=== PATIENT | female | born 2000 ===

== ENCOUNTER 2018-10-06 19:43 | Emergency (ER) | payer SELFPAY ==
[2018-10-06 20:06] VITALS: RESP 18; TEMP 99.3
--- NOTE | 2018-10-06 20:59 | ED PDOC ---
HPI: Abdomen Time Seen by Provider: 10/06/18 20:34 Chief Complaint (Nursing): GI Problem Chief Complaint (Provider): rectal bleed History Per: Patient History/Exam Limitations: no limitations Onset/Duration Of Symptoms: Days (2), Intermittent Episodes Associated Symptoms: denies: Fever, Chills, Nausea, Vomiting Exacerbating Factors: None Alleviating Factors: None Additional Complaint(s): Episode of blood with bowel movement last night. Then had normal bowel movement this morning. Just prior to arrival she was voiding and felt "tightness" in her rectum and when she wiped, she had blood on tissue, then drops in toilet. Denies nosebleed, dental bleed, vaginal bleed or bruising. Denies abdominal pain or lightheadedness. Intermittently has constipation, but currently not constipated No rectal pain or itching. Past Medical History Reviewed: Historical Data, Nursing Documentation, Vital Signs Vital Signs: Last Vital Signs Temp 99.3 F 10/06/18 20:04 Pulse 78 10/06/18 20:04 Resp 18 10/06/18 20:04 BP 132/79 10/06/18 20:04 Pulse Ox 99 10/06/18 20:04 - Medical History PMH: Asthma Denies: Chronic Kidney Disease - Surgical History Surgical History: No Surg Hx - Family History Family History: States: No Known Family Hx - Social History Current smoker - smoking cessation education provided: No - Immunization History Hx Tetanus Toxoid Vaccination: No Hx Influenza Vaccination: No Hx Pneumococcal Vaccination: No - Home Medications Home Medications: Ambulatory Orders Medication Instructions Recorded Hard Fat/Phenylephrine [place] 1 sup RC Q4 PRN #30 sup 10/06/18 [Anusol Suppository] - Allergies Allergies/Adverse Reactions: Allergies Allergy/AdvReac Type Severity Reaction Status Date / Time No Known Allergies Allergy Verified 10/06/18 20:04 Review of Systems ROS Statement: Except As Marked, All Systems Reviewed And Found Negative Gastrointestinal: Positive for: Hematochezia. Negative for: Nausea, Vomiting, Abdominal Pain, Melena, Rectal Pain Physical Exam - Reviewed Nursing Documentation Reviewed: Yes Vital Signs Reviewed: Yes - Physical Exam Appears: Positive for: Non-toxic, No Acute Distress Head Exam: Positive for: ATRAUMATIC, NORMOCEPHALIC Skin: Positive for: Normal Color, Warm, Dry. Negative for: Pallor Eye Exam: Positive for: EOMI, PERRL Neck: Positive for: Painless ROM, Supple Gastrointestinal/Abdominal: Positive for: Bowel Sounds, Soft. Negative for: Tenderness, Mass, Distended, Guarding, Rebound Rectal: Positive for: Hemorrhoids (intact), Other (scant amount of red blood near rectum. When wiped away, no active bleed. Alkylation Operator: Kristel ROGEL) Lymphatic: Negative for: Adenopathy Neurologic/Psych: Positive for: Alert. Negative for: Motor/Sensory Deficits - ECG O2 Sat by Pulse Oximetry: 99 Disposition - Clinical Impression Clinical Impression: Hemorrhoids - Disposition Referrals: Elvia Reyna MD [Staff Provider] - 10/09/18 (FOLLOW UP WITH DR REYNA FOR REEVALUATION) Disposition: Routine/Home Disposition Time: 21:02 Condition: STABLE Prescriptions: Hard Fat/Phenylephrine [place] [Anusol Suppository] 1 sup RC Q4 PRN #30 sup PRN Reason: RECTAL PAIN Instructions: Hemorrhoids (DC)
[2018-10-06 21:29] VITALS: BP 118/76; PULSE 72
[2018-10-07 17:22] VITALS: O2SAT 99
== END 2018-10-06 21:15 | disposition home or self-care (01) ==
LOC: H.ER 19:43
DX: K64.9 Unspecified hemorrhoids (principal); J45.909 Unspecified asthma, uncomplicated